=== PATIENT | male | born 1950 | race Caucasian/White ===

== ENCOUNTER 2018-06-28 14:02 | Emergency (ER) | payer MEDICARE ==
[~2018-06-28] VITALS: Ht 177.8 cm; Wt 86.2 kg
[2018-06-28] MEDS ORDERED: DOXYCYCLINE HY100 MG PO (14:15)
[2018-06-28] MEDS ORDERED: NORCO 5-325 TA1 EACH PO (14:15)
== END 2018-06-28 15:04 | disposition home or self-care (01) ==
LOC: ED 14:02
DX: S61.452A Open bite of left hand, initial encounter (principal); I25.10 Atherosclerotic heart disease of native coronary artery without angina pectoris; I10 Essential (primary) hypertension; Z88.0 Allergy status to penicillin; W54.0XXA Bitten by dog, initial encounter
CPT/HCPCS: 73130; 99283